=== PATIENT | female | born 1995 | race Two or more races ===

== ENCOUNTER 2019-09-26 18:39 | Emergency (ER) | payer OTHER ==
[~2019-09-26] VITALS: Ht 154.9 cm; Wt 54.4 kg
== END 2019-09-26 22:10 | disposition home or self-care (01) ==
LOC: ER 18:39
DX: R07.89 Other chest pain (principal)

== ENCOUNTER 2019-12-12 13:20 | Emergency (ER) | payer OTHER ==
[~2019-12-12] VITALS: Ht 154.9 cm; Wt 58.1 kg
== END 2019-12-12 16:20 | disposition home or self-care (01) ==
LOC: ER 13:20
DX: O26.891 Other specified pregnancy related conditions, first trimester (principal); O26.841 Uterine size-date discrepancy, first trimester; O44.01 Complete placenta previa NOS or without hemorrhage, first trimester; R10.2 Pelvic and perineal pain; Z3A.14 14 weeks gestation of pregnancy

== ENCOUNTER 2020-03-21 16:16 | Outpatient (CLI) | payer OTHER | END 2020-03-22 11:14 | disposition home or self-care (01) | LOC: OBS/DEL 16:16 | PROVIDERS: ATTEND Specialist | DX: O26.893 Other specified pregnancy related conditions, third trimester (principal); R10.2 Pelvic and perineal pain; O60.03 Preterm labor without delivery, third trimester; O23.43 Unspecified infection of urinary tract in pregnancy, third trimester ==

== ENCOUNTER 2020-03-26 13:58 | Inpatient (IN) | payer OTHER ==
[~2020-03-26] VITALS: Ht 154.9 cm; Wt 64.4 kg
[2020-03-26] MEDS ORDERED: KEFLEX500 MG PO (17:03)
[2020-03-26] MEDS ORDERED: NIFEDIPINE10 MG PO (17:03)
[2020-03-26] MEDS ORDERED: FOLIC ACID20 MG PO (17:03)
== END 2020-03-29 14:30 | disposition home or self-care (01) | DRG 831 ==
LOC: LDR 13:58
PROVIDERS: ADMIT Specialist; ATTEND Specialist
PROC: 4A0HXFZ Measurement of Products of Conception, Cardiac Rhythm, External Approach (ICD-10-PCS; principal; 2020-03-26)
PROC: BY4FZZZ Ultrasonography of Third Trimester, Single Fetus (ICD-10-PCS; 2020-03-28)
PROC: BY4FZZZ Ultrasonography of Third Trimester, Single Fetus (ICD-10-PCS; 2020-03-28)
DX: O60.03 Preterm labor without delivery, third trimester (principal); O34.33 Maternal care for cervical incompetence, third trimester; O23.43 Unspecified infection of urinary tract in pregnancy, third trimester; O26.893 Other specified pregnancy related conditions, third trimester; O35.0XX0 Maternal care for (suspected) central nervous system malformation in fetus, not applicable or unspecified; R10.2 Pelvic and perineal pain; Z3A.30 30 weeks gestation of pregnancy

== ENCOUNTER → 2020-03-26 | Outpatient (CLI) | payer OTHER ==
[~2020-03-26] MED LIST: FOLIC ACID20 MG PO; KEFLEX500 MG PO; NIFEDIPINE10 MG PO
== END | disposition home or self-care (01) ==
LOC: PRENATAL 08:30
PROVIDERS: ATTEND Obstetrics & Gynecology Maternal & Fetal Medicine
DX: O26.843 Uterine size-date discrepancy, third trimester (principal); O60.03 Preterm labor without delivery, third trimester; O26.893 Other specified pregnancy related conditions, third trimester; Z36.89 Encounter for other specified antenatal screening; Z3A.30 30 weeks gestation of pregnancy

== ENCOUNTER 2020-04-09 17:37 | Inpatient (IN) | payer OTHER ==
[~2020-04-09] VITALS: Ht 154.9 cm; Wt 64.4 kg
[2020-04-09] MEDS ORDERED: PRENATAL CAPLE1 EAC1 PO (18:24)
== END 2020-04-15 10:46 | disposition home or self-care (01) | DRG 832 ==
LOC: LDR 17:37 → OB/GYN 04-12 10:40
PROVIDERS: ADMIT Specialist; ATTEND Specialist
PROC: BY4FZZZ Ultrasonography of Third Trimester, Single Fetus (ICD-10-PCS; principal; 2020-04-09)
PROC: 4A1HXCZ Monitoring of Products of Conception, Cardiac Rate, External Approach (ICD-10-PCS; 2020-04-09)
DX: O60.03 Preterm labor without delivery, third trimester (principal); O26.873 Cervical shortening, third trimester; O23.33 Infections of other parts of urinary tract in pregnancy, third trimester

== ENCOUNTER 2020-05-04 20:35 | Outpatient (CLI) | payer OTHER ==
[~2020-05-04 20:35] MED LIST changes: +PRENATAL CAPLE1 EAC1 PO
[2020-05-04] MEDS ORDERED: PREVACID30 MG PO (22:38)
[2020-05-04] MEDS ORDERED: KEFLEX PO (22:39)
== END 2020-05-05 13:47 | disposition home or self-care (01) ==
LOC: OBS/DEL 20:35
PROVIDERS: ATTEND Specialist
DX: O26.843 Uterine size-date discrepancy, third trimester (principal); O36.8130 Decreased fetal movements, third trimester, not applicable or unspecified; O36.5930 Maternal care for other known or suspected poor fetal growth, third trimester, not applicable or unspecified; O26.873 Cervical shortening, third trimester

== ENCOUNTER 2020-05-09 18:30 | Inpatient (IN) | payer OTHER ==
[~2020-05-09] VITALS: Ht 154.9 cm; Wt 67.1 kg
[~2020-05-09 18:30] MED LIST changes: +KEFLEX PO; +PREVACID30 MG PO
== END 2020-05-11 15:15 | disposition home or self-care (01) | DRG 807 ==
LOC: LDR 18:30 → OB/GYN 05-10 15:25
PROVIDERS: ADMIT Specialist; ATTEND Specialist
PROC: 10E0XZZ Delivery of Products of Conception, External Approach (ICD-10-PCS; principal; 2020-05-09)
PROC: 4A0HXFZ Measurement of Products of Conception, Cardiac Rhythm, External Approach (ICD-10-PCS; 2020-05-09)
DX: O60.14X0 Preterm labor third trimester with preterm delivery third trimester, not applicable or unspecified (principal); Z37.0 Single live birth; Z3A.36 36 weeks gestation of pregnancy